=== PATIENT | male | born 1940 | race African-American/Black ===

== ENCOUNTER → 2017-08-15 | Day surgery (SDC) | payer MEDICARE ==
[~2017-08-15] MED LIST: CORT25TA PO; LOVA10TA PO; METF-324 PO; SYNT112T PO; immodium; vit b12
== END | disposition home or self-care (01) ==
LOC: ESDC 09:17
PROVIDERS: ATTEND Internal Medicine Gastroenterology
DX: D64.9 Anemia, unspecified (principal)
CPT/HCPCS: 99211; G0463